=== PATIENT | male | born 1960 ===

== ENCOUNTER 2018-12-17 10:53 | Outpatient (CLI) | payer OTHER ==
[~2018-12-17] VITALS: Ht 172.7 cm; Wt 80.3 kg
== END 2018-12-17 12:53 | disposition home or self-care (01) ==
LOC: ECT 10:53
DX: F33.2 Major depressive disorder, recurrent severe without psychotic features (principal); I10 Essential (primary) hypertension; G47.33 Obstructive sleep apnea (adult) (pediatric); E78.5 Hyperlipidemia, unspecified; M47.9 Spondylosis, unspecified; F41.9 Anxiety disorder, unspecified

== ENCOUNTER 2018-12-19 08:10 | Outpatient (RCR) | payer OTHER ==
[~2018-12-19] VITALS: Ht 172.7 cm; Wt 80.3 kg
[2018-12-19] MEDS ORDERED: Midazolam 2mg/2ml Inj ONE ×2 (08:11)
[2018-12-19] MEDS ORDERED: NS 500ML ONE ×2 (08:11)
[2018-12-19] MEDS ORDERED: Succinylcholine 20mg/ml 10ml vial ONE ×2 (08:11)
[2018-12-19] MEDS ORDERED: Methohexital Sodium 500mg Vial IVP ONE (08:11)
[2018-12-19] MEDS ORDERED: Methohexital Sodium Syr 100mg/10ml IVP ONE (08:11)
[2018-12-19 09:19] VITALS: BP 140/89
[2018-12-19 09:29] VITALS: BP 140/89
[2018-12-19 09:45] VITALS: BP 125/68
[2018-12-19 09:50] VITALS: BP 123/67
[2018-12-19 09:55] VITALS: BP 130/70
[2018-12-19 10:00] VITALS: BP 131/84
[2018-12-21] MEDS ORDERED: Methohexital Sodium Syr 100mg/10ml IVP ONE (07:00)
[2018-12-21] MEDS ORDERED: Midazolam 2mg/2ml Inj ONE (07:00)
[2018-12-21] MEDS ORDERED: Succinylcholine 20mg/ml 10ml vial ONE (07:00)
[2018-12-21] MEDS ORDERED: NS 500ML ONE (07:00)
[2018-12-21 08:42] VITALS: BP 157/99
[2018-12-21 08:55] VITALS: BP 138/79
[2018-12-21 09:00] VITALS: BP 131/63
[2018-12-21 09:05] VITALS: BP 138/67
[2018-12-21 09:10] VITALS: BP 138/85
[2018-12-24] MEDS ORDERED: NS 500ML ONE (08:00)
[2018-12-24] MEDS ORDERED: Methohexital Sodium Syr 100mg/10ml IVP ONE (08:00)
[2018-12-24] MEDS ORDERED: Succinylcholine 20mg/ml 10ml vial ONE (08:00)
[2018-12-24] MEDS ORDERED: Midazolam 2mg/2ml Inj ONE (08:00)
[2018-12-24 08:34] VITALS: BP 116/77
[2018-12-24 08:50] VITALS: BP 158/90
[2018-12-24 08:55] VITALS: BP 143/79
[2018-12-24 09:00] VITALS: BP 118/64
[2018-12-24 09:05] VITALS: BP 112/65
[2018-12-26 09:05] VITALS: BP 143/93
[2018-12-26 09:20] VITALS: BP 124/71
[2018-12-26 09:25] VITALS: BP 106/62
[2018-12-26 09:30] VITALS: BP 113/54
[2018-12-26 09:35] VITALS: BP 112/55
[2018-12-28 08:08] VITALS: BP 135/80
[2018-12-28 08:25] VITALS: BP 151/81
[2018-12-28 08:30] VITALS: BP 129/67
[2018-12-28 08:35] VITALS: BP 138/73
[2018-12-28 08:40] VITALS: BP 121/76
[2018-12-31] MEDS ORDERED: NS 500ML ONE (06:00)
[2018-12-31] MEDS ORDERED: Midazolam 2mg/2ml Inj ONE (06:00)
[2018-12-31] MEDS ORDERED: Methohexital Sodium Syr 100mg/10ml IVP ONE (06:00)
[2018-12-31] MEDS ORDERED: Succinylcholine 20mg/ml 10ml vial ONE (06:00)
[2018-12-31 09:29] VITALS: BP 131/84
[2018-12-31] MEDS ORDERED: Atropine Sulfate 0.4mg/ml inj IVP PRN (09:48)
[2018-12-31 09:50] VITALS: BP 128/65
[2018-12-31 09:55] VITALS: BP 111/79
[2018-12-31 10:00] VITALS: BP 118/71
[2018-12-31 10:05] VITALS: BP 130/58
[2019-01-02] MEDS ORDERED: Succinylcholine 20mg/ml 10ml vial ONE (07:00)
[2019-01-02] MEDS ORDERED: NS 500ML ONE (07:00)
[2019-01-02] MEDS ORDERED: Midazolam 2mg/2ml Inj ONE (07:00)
[2019-01-02] MEDS ORDERED: Methohexital Sodium Syr 100mg/10ml IVP ONE (07:00)
[2019-01-02 08:32] VITALS: BP 130/80
[2019-01-02 08:40] VITALS: BP 144/68
[2019-01-02 08:45] VITALS: BP 128/66
[2019-01-02 08:50] VITALS: BP 127/65
[2019-01-02 08:55] VITALS: BP 112/75
[2019-01-04] MEDS ORDERED: Methohexital Sodium Syr 100mg/10ml IVP ONE (07:00)
[2019-01-04] MEDS ORDERED: Succinylcholine 20mg/ml 10ml vial ONE (07:00)
[2019-01-04] MEDS ORDERED: NS 500ML ONE (07:00)
[2019-01-04] MEDS ORDERED: Midazolam 2mg/2ml Inj ONE (07:00)
[2019-01-04 09:40] VITALS: BP 124/81
[2019-01-04] MEDS ORDERED: Atropine Sulfate 0.4mg/ml inj IVP PRN (10:03)
[2019-01-04 10:05] VITALS: BP 126/73
[2019-01-04 10:10] VITALS: BP 115/66
[2019-01-04 10:15] VITALS: BP 117/65
[2019-01-04 10:20] VITALS: BP 121/68
== END 2019-01-06 | disposition home or self-care (01) ==
LOC: ECT 08:10
DX: F33.2 Major depressive disorder, recurrent severe without psychotic features (principal); I10 Essential (primary) hypertension; E78.5 Hyperlipidemia, unspecified; G47.33 Obstructive sleep apnea (adult) (pediatric); M47.812 Spondylosis without myelopathy or radiculopathy, cervical region; M72.2 Plantar fascial fibromatosis; M54.5 Low back pain
CPT/HCPCS: 90870; J0330; J2250; J3490; J7040